=== PATIENT | male | born 1960 | race Caucasian/White ===

== ENCOUNTER → 2022-08-27 | Outpatient (CLI) | payer OTHER | END | disposition home or self-care (01) | LOC: RAH 10:51 | PROVIDERS: ATTEND Nurse Practitioner | DX: M47.817 Spondylosis without myelopathy or radiculopathy, lumbosacral region (principal); M51.27 Other intervertebral disc displacement, lumbosacral region; M48.07 Spinal stenosis, lumbosacral region | CPT/HCPCS: 72148 ==

== ENCOUNTER → 2022-12-18 | Outpatient (CLI) | payer OTHER | END | disposition home or self-care (01) | LOC: RAH 09:03 | PROVIDERS: ATTEND Nurse Practitioner | DX: M47.812 Spondylosis without myelopathy or radiculopathy, cervical region (principal); M54.2 Cervicalgia | CPT/HCPCS: 72141 ==